=== PATIENT | male | born 1990 | race Two or more races ===

== ENCOUNTER 2019-02-12 11:16 | Emergency (ER) | payer SELFPAY ==
[~2019-02-12] VITALS: Ht 177.8 cm; Wt 83.9 kg
[2019-02-12 11:20] VITALS: BP 121/69
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
--- NOTE | 2019-02-12 11:55 | NUR ---
ED Nurse Note: X-RAY AT THE BEDSIDE
--- NOTE | 2019-02-12 12:13 | Diagnostic Imaging Report ---
Indication: Right knee Pain 3 views of the right knee were obtained. Findings: No acute fracture, malalignment, or joint effusion are identified. Signs of prior ACL repair noted. Impression: Negative for acute findings.
[2019-02-12 12:25] VITALS: BP 121/69
[2019-02-12] MEDS ORDERED: LIDODERM700 M1 TOPIC (12:26)
[2019-02-12] MEDS ORDERED: ROBAXIN-750750 MG PO (12:26)
[2019-02-12] MEDS ORDERED: IBUPROFEN600 MG ORAL (12:26)
--- NOTE | 2019-02-12 12:26 | NUR ---
DISCHARGED HOME WITH INSTRUCTION TO FOLLOW UP WITH PMD .crutches provided crutch walking instruction provided
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
== END 2019-02-12 12:32 | disposition home or self-care (01) ==
LOC: EMR 12:18
DX: S16.1XXA Strain of muscle, fascia and tendon at neck level, initial encounter (principal); S89.91XA Unspecified injury of right lower leg, initial encounter; V43.52XA Car driver injured in collision with other type car in traffic accident, initial encounter; Y92.411 Interstate highway as the place of occurrence of the external cause; Z91.010 Allergy to peanuts
CPT/HCPCS: 99283